=== PATIENT | male | born 1960 | race Caucasian/White ===

== ENCOUNTER → 2024-06-24 16:43 | Outpatient (REF) | payer OTHER, SELFPAY | LOC: RAD 16:43 | PROVIDERS: ATTENDING PHYSICIAN Physician Assistant Medical | DX: R07.89 Other chest pain (principal) | CPT/HCPCS: 71046 ==

== ENCOUNTER → 2024-06-28 11:53 | Outpatient (REF) | payer OTHER, SELFPAY ==
[2024-06-28 13:08] LABS: D-Dimer < 0.27 ug/mlFEU (0.00-0.50)
== END ==
LOC: REG 11:53
PROVIDERS: ATTENDING PHYSICIAN Physician Assistant Medical
DX: R07.9 Chest pain, unspecified (principal)
CPT/HCPCS: 36415; 85379

== ENCOUNTER 2024-09-10 06:20 | Day surgery (SDC) | payer OTHER, SELFPAY | END 2024-09-10 12:42 | disposition home or self-care (01) | LOC: GI 06:20 | PROVIDERS: ATTENDING PHYSICIAN Specialist; FAMILY PHYSICIAN Physician Assistant Medical | DX: K29.70 Gastritis, unspecified, without bleeding (principal); K21.00 Gastro-esophageal reflux disease with esophagitis, without bleeding; K31.89 Other diseases of stomach and duodenum; R13.10 Dysphagia, unspecified | CPT/HCPCS: 43239; 88305; 88342 ==

== ENCOUNTER 2024-12-13 14:39 | Inpatient (IN) | payer OTHER, SELFPAY ==
[2024-12-13] VITALS (19 sets, daily range): BP systolic 113–199; BP diastolic 76–115; PULSE 62–73; BMI 33.6
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
[2024-12-13 09:38] LABS: Glucose - Point of Care 121 mg/dl (70-99)
[2024-12-13] MEDS: TRANDATE 10 MG IV (09:46)
[2024-12-13 09:54] LABS: INR 0.92; PT 12.6 Sec (11.4-14.6)
[2024-12-13 09:55] LABS: APTT 31.0 Sec (23.4-35.0)
[2024-12-13 10:07] LABS: ALT (SGPT) 17 U/L (0-50); AST (SGOT) 17 U/L (17-59); Albumin 4.4 g/dl (3.5-5.0); Alkaline Phosphatase 98 U/L (38-126); Blood Urea Nitrogen 13 mg/dl (9-20); Calcium 9.7 mg/dl (8.4-10.2); Carbon Dioxide 29 mmol/L (22-30); Chloride 109 mmol/L (98-107); Estimated Creatinine Clearance 89 ml/min; Glucose 112 mg/dl (70-99); Potassium 4.1 mmol/L (3.5-5.1); Sodium 142 mmol/L (135-145); Total Protein 7.1 g/dl (6.3-8.2); eGFR > 60.00
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
[2024-12-13 11:12] LABS: Hematocrit 49.4 % (39.0-52.0); Hemoglobin 17.0 g/dL (13.0-18.0); Mean Corp Hgb Conc. 34.4 g/dL (33.0-37.0); Mean Corpuscular Volume 89.8 fL (80.0-94.0); Nucleated Red Blood Cells % 0 % (-); Platelet Count 225 10^3/uL (130-400); Red Cell Dist. Width 12.1 % (11.5-14.5)
[2024-12-13 12:03] LABS: HDL Cholesterol 34 mg/dl; LDL Cholesterol, Calculated 101 mg/dl; Very Low Density Lipoprotein 38 mg/dl (0-30)
[2024-12-13] MEDS: LIDOCAINE 4% PATCH 1 PATCH TOPICAL (17:57)
[2024-12-13] MEDS: NORVASC 2.5 MG PO (17:59)
[2024-12-13] MEDS: LOVENOX 40 MG SC (18:00)
[2024-12-13] MEDS: LEXAPRO 10 MG PO (18:05)
[2024-12-13] MEDS: TYLENOL 650 MG PO (21:46)
[2024-12-13] MEDS: APRESOLINE 5 MG IV (23:50)
[2024-12-14 03:10] VITALS: BP 137/82
[2024-12-14 06:49] LABS: Venous Blood Gas B.E. 4.4 mmol/L (-4 to +4); Venous Blood Gas O2 Sat % 90.0 %
[2024-12-14 06:50] LABS: Hematocrit 45.8 % (39.0-52.0); Hemoglobin 16.0 g/dL (13.0-18.0); Mean Corp Hgb Conc. 34.9 g/dL (33.0-37.0); Mean Corpuscular Volume 89.6 fL (80.0-94.0); Platelet Count 195 10^3/uL (130-400); Red Cell Dist. Width 11.9 % (11.5-14.5)
[2024-12-14 07:00] VITALS: BP 141/83
[2024-12-14] MEDS: NORVASC 2.5 MG PO (08:16)
[2024-12-14 08:36] LABS: Blood Urea Nitrogen 15 mg/dl (9-20); Calcium 9.0 mg/dl (8.4-10.2); Carbon Dioxide 26 mmol/L (22-30); Chloride 105 mmol/L (98-107); Estimated Creatinine Clearance 97 ml/min; Glucose 94 mg/dl (70-99); Magnesium 2.0 mg/dl (1.6-2.3); Potassium 4.1 mmol/L (3.5-5.1); Sodium 138 mmol/L (135-145); eGFR > 60.00
--- NOTE | 2024-12-14 08:55 | W.PN.NEURO.1 ---
Addendum entered and electronically signed by Jaron Gonsalez MD 12/14/24 14:04:
Studies reviewed.
I have personally examined the patient. I reviewed and agree with the ROOFER's Note.
My addenda:
Awake, alert, interactive. No acute distress.
Speech intact. Has unremarkable recall of events
No tremor.
Extra-ocular movements grossly intact.
Facial movements full and symmetric. Hearing intact to normal conversational volume.
Normal UE movements bilaterally.
Neck: full ROM.
Chest: no dyspnea
Heart: no JVD
Ext: (-) Clubbing, (-) Cyanosis, (-) Edema
IMPRESSIONS/RECOMMENDATIONS:
Abrupt onset of amnesia
Most likely secondary to transient global amnesia. Secondary possibility would be hypertensive encephalopathy
Continue aspirin for approximately 6 months, then discontinue (June 2025)
Goal of normotension
D/W patient
All questions answered.
Will continue to follow as needed.
Original Note:
Today's Communication / Plan
-
Impressions: Transient global amnesia (TGA) most likely diagnosis as patient's memory returned and back to baseline, cannot rule out hypertensive encephalopathy as he was hypertensive on admission
-Brain MRI and head CT showed no evidence of CVA
-goal normotension, continue BP medication
-continue aspirin 81 mg daily and atorvastatin 40 mg nightly
All questions encouraged and answered, plan of care discussed with Dr. Gonsalez, hospitalist, patient and family
Neuro Assessment/Plan
Assessment
This is a right handed 64-year-old male with a past medical history of asthma, GERD who presents to [facility] on 12/13 2024 with his as prehospital stroke alert.
Head CT: No acute intracranial abnormality
Head and neck CTA: The cervical carotid and vertebral arteries are patent. Mild noncalcified and calcified plaque in the left carotid bulb and ICA. However, no hemodynamically significant stenosis, no occlusion or dissection, bilaterally.
No [place] of [place] region aneurysm or stenosis.
No cerebral artery significant plaque, stenosis, thrombus, or occlusion.
Straightening of the cervical lordosis. No anterior or posterior listhesis. No vertebral compression deformity. No prevertebral soft tissue swelling. Degenerative disc disease from C4-5 through C6-7.
Brain MRI: No acute intracranial abnormality.
Plan
Impressions: Transient global amnesia (TGA) most likely diagnosis as patient's memory returned and back to baseline, cannot rule out hypertensive encephalopathy as he was hypertensive on admission
-Brain MRI and head CT showed no evidence of CVA
-goal normotension, continue BP medication
-continue aspirin 81 mg daily and atorvastatin 40 mg nightly
All questions encouraged and answered, plan of care discussed with Dr. Gonsalez, hospitalist, patient and family
Subjective/Objective
Subjective Data
Date of Service: December 14, 2024
No acute events overnight. States he feels back to normal. States his memory has returned.
Objective Data
Vital Signs
Temp Pulse Resp BP Pulse Ox
97.6 F 53 14 141/83 97
12/14/24 07:00 12/14/24 07:00 12/14/24 07:00 12/14/24 07:00 12/14/24 07:00
Lab Results
12/14/24 06:37
12/14/24 06:37
PT 12.6 Sec (11.4-14.6) 12/13/24 09:33
INR 0.92 12/13/24 09:33
APTT 31.0 Sec (23.4-35.0) 12/13/24 09:33
Sodium 138 mmol/L (135-145) 12/14/24 06:37
Potassium 4.1 mmol/L (3.5-5.1) 12/14/24 06:37
BUN 15 mg/dl (9-20) 12/14/24 06:37
Glucose 94 mg/dl (70-99) 12/14/24 06:37
Calcium 9.0 mg/dl (8.4-10.2) 12/14/24 06:37
Phosphorus 3.2 mg/dl (2.5-4.5) 12/14/24 06:37
LDL Cholesterol, Calc 101 mg/dl 12/13/24 09:33
Patient Allergies
No Known Allergies Allergy (Verified 12/13/24 09:50)
Physical Exam
-
General: No Apparent Distress, Comfortable and Appears Stated Age
HEENT: Normocephalic, Atraumatic and Anicteric
Neck: Full Range of Motion
Respiratory: No Dyspnea
Cardiac: No JVD
GI: Non-distended
Skin: Unremarkable
Extremities: No Clubbing, No Cyanosis and No Edema
Psych: Intact Judgement/Insight
Extended Neurological Exam
Mood & Affect: Mood Unremarkable
Attention Span & Concentration: Awake, Alert, Interactive and No Difficulty with 2 Step Request
Memory: Unremarkable
Tremor: Hand Tremor Absent and Head Tremor Absent
Involuntary Movement: None
Speech: Quality Unremarkable, Quantity Unremarkable and Rate of Production Unremarkable
Cranial Nerve II: Left Eye: Visual [place] Grossly Intact
Cranial Nerve II: Right Eye: Visual [place] Grossly Intact
Cranial Nerves III, IV, : Extraocular Movement: Extraocular Movement Full in all Directions
Cranial Nerve VII: Facial Symmetry: Normal Facial Symmetry
Cranial Nerve VIII: Hearing: Unremarkable Hearing to Normal Conversational Volume
Cranial Nerves IX, X: Palate Movement: Palate Elevation Symmetric
Muscle Strength, Overall: Full Throughout
Muscle Bulk & Tone: Bulk Unremarkable and Tone Unremarkable
Pronator Drift: No Drift in Upper Extremities and No Drift in Lower Extremities
Deep Tendon Reflexes: Unremarkable Throughout
Coordination: [id number] Testing Unremarkable and Reaches for Objects without Difficulty
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
[2024-12-14] MEDS: LIDOCAINE 4% PATCH TOPICAL (10:05)
[2024-12-14] MEDS: TYLENOL 650 MG PO (10:19)
[2024-12-14 11:09] VITALS: BP 136/83
[2024-12-14] MEDS: MOTRIN 400 MG PO (12:24)
[2024-12-14] MEDS: ZYRTEC 10 MG PO (13:35)
--- NOTE | 2024-12-14 13:57 | CM ---
Addendum entered by Temi Luis 12/14/24 16:18:
IMM explained & signed. In chart
discharge to home. No needs
to transport
Original Note:
Patient seen at bedside
IA completed
Lives with in a 2 story home, 2 steps to enter, flight to bedroom/bathroom
PLOF: Independent
Denies DME
Denies VN/has had outpatient PT in past
Denies insecurities
PCP: Misti Hinojosa
Pharmacy: [address], [place]
PLAN: Home, no needs
[2024-12-14 15:05] VITALS: BP 146/95
--- NOTE | 2024-12-14 16:15 | W.DCSUMMARY ---
Discharge Summary
Discharge Data
Date of Admission: 12/13/24
Date of Discharge: 12/14/24
-
Pending Results: No
Discharge Plan
-
Patient Disposition: Home (Routine Discharge)
Discharge Diagnosis/Procedures: Transient Global Amnesia vs Hypertensive Encephalopathy
Recurrent Sinusitis
Mild Hyperlipidemia
Obesity
Obstructive Sleep Apnea
Cervical Degenerative Disc Disease
Condition: Fair
Diet: Low Cholesterol and 2 Gram Sodium
Activity: As tolerated
Driving Restrictions: As prior to admission
Bathing Restrictions: None
Blood Work: Repeat Lipid panel with primary care provider in 1 month of discharge.
Others Tests: Follow up with Primary care provider for repeat Sleep Study
Activity Restrictions/Additional Instructions:
Follow up with primary care provider in 1 week of discharge and, in 2-4 weeks of discharge, ENT and Neurology.
Aspirin 81 mg daily has been prescribed for Transient Global Amnesia as per Neurology recommendations. Continue with aspirin for 6 months, stopping Jun 2025.
Amlodipine has been prescribed for Hypertension. Keep a daily log of your pressures at home to review with your primary care provider in follow up for further evaluation/treatment hypertension.
Amoxicillin and steroid taper have been prescribed for recurrent sinusitis.
Please take medications as prescribed/recommended and follow up with primary care provider and/or other healthcare provider involved in your care for refills and/or further adjustment to your medication regimen as necessary.
Referrals:
Misti Hinojosa PA [Family Provider, Family Practice] - in one week
Jaron Gonsalez MD [Active, Neurology] - in two to four weeks
Vicky Luna MD [Active, Otology] - in two to four weeks
Prescriptions:
New
amoxicillin 500 mg Capsule
500 mg PO Q8H 5 Days Qty: 15 0RF
aspirin 81 mg Tablet,Chewable
81 mg PO DAILY Qty: 90 0RF
amlodipine 5 mg Tablet
5 mg PO DAILY Qty: 30 0RF
methylprednisolone [Medrol (Ivan)] 4 mg tablets,dose pack
See Rx Instructions .ROUTE .COMPLEX Qty: 21 0RF
Rx Instructions:
for 6 days
Continued
sherrie Funez B.animalis 1 EACH capsule
1 ea PO DAILY
escitalopram oxalate 10 mg tablet
10 mg PO DAILY
cholecalciferol (vitamin D3) [Vitamin D3] 25 mcg (1,000 unit) Tablet
25 mcg PO DAILY
magnesium 500 mg Tablet
500 mg PO Daily
Discharge Orders:
Discharge Patient (As Directed); Ordered 12/14/24
Ordered By: Rob Lopez
Discharge Date and Time
Print Language: FAROESE
[2024-12-14] MEDS: MEDROL 24 MG PO (16:26)
[2024-12-14] MEDS: AMOXIL 500 MG PO (16:27)
== END 2024-12-14 17:05 | disposition home or self-care (01) | DRG 71 ==
LOC: 3 WEST ACU 14:39
PROVIDERS: ADMITTING PHYSICIAN Internal Medicine; CONSULT PHYSICIAN Psychiatry & Neurology Neurology; EMERGENCY PHYSICIAN Emergency Medicine; FAMILY PHYSICIAN Physician Assistant Medical
DX: G45.4 Transient global amnesia (principal); I67.4 Hypertensive encephalopathy; M50.30 Other cervical disc degeneration, unspecified cervical region; J45.909 Unspecified asthma, uncomplicated; K21.9 Gastro-esophageal reflux disease without esophagitis; F41.9 Anxiety disorder, unspecified; F32.A Depression, unspecified; E66.9 Obesity, unspecified; E78.5 Hyperlipidemia, unspecified; G47.33 Obstructive sleep apnea (adult) (pediatric); J32.8 Other chronic sinusitis; I10 Essential (primary) hypertension; S09.90XD Unspecified injury of head, subsequent encounter; W16 Fall, jump or diving into water; Z79.899 Other long term (current) drug therapy; Z68.33 Body mass index [BMI] 33.0-33.9, adult; Z91.199 Patient's noncompliance with other medical treatment and regimen due to unspecified reason
CPT/HCPCS: 70450; 70496; 70498; 70551; 71046; 73110; 80048; 80053; 80061; 82805; 82962; 83735; 84100; 85025; 85027; 85610; 85730; 93005; 96374; 99291; Q9967

== ENCOUNTER → 2025-01-06 09:24 | Outpatient (REF) | payer OTHER, SELFPAY | LOC: RCS 09:24 | PROVIDERS: ATTENDING PHYSICIAN Internal Medicine Cardiovascular Disease; FAMILY PHYSICIAN Physician Assistant Medical | DX: I10 Essential (primary) hypertension (principal) | CPT/HCPCS: 93306 ==